=== PATIENT | male | born 1960 | race Caucasian/White ===

== ENCOUNTER → 2016-09-24 | Outpatient (CLI) | payer BC ==
[~2016-09-24] MED LIST: BAYER ASPIRIN325 M1 PO; LOTREL 5/20 MG1 CAP PO; REQUIP1 MG PO
--- NOTE | ~2016-09-24 | MR2 ---
[facility] A Service of [facility] RADIOLOGY TEXT RESULTS PATIENT: JEAN JUAREZ [facility] 60 UNIT #: [id number] AGE: [address]: Matt Sam MD SEX: M ORDER DR: [id number] [facility] [address] [facility] [place], [place] [address] [id number] MR#: [id number] Acc #: [id number] NAME: JEAN JUAREZ. : 1960 SEX: M STUDY DATE/TIME: 09/24/2016 22:27 UNIT: [facility] ROOM: STUDY DESCRIPTION: MR Abdomen WWo Cont Attending Physician: Matt Sam M.D. Referring Physician: Matt Sam M.D. Ordering Physician: Matt Sam M.D. Primary Care Physician: Matt Sam M.D. MRI CENTER REPORT This report is preliminary unless electronic signature is present. EXAM MRI abdomen, without and with IV gadolinium HISTORY Right hepatic mass on CT without contrast 09/13/2016. Fatty liver. Bilateral abdomen pain for 1 month. FINDINGS MRI abdomen was performed without and with IV gadolinium. The exam is compared to CT abdomen 09/13/2016 There is diffuse fatty infiltration of the liver. There is a lobulated mass in the inferomedial right hepatic lobe in segment 6, partly exophytic, measuring 5.6 cm x 6.6 cm in AP and transverse dimensions, corresponding to the mass on CT 09/13/2016. The lesion is hypointense on T1 and hyperintense on T2. On the post-gadolinium series, there is peripheral nodular immediate enhancement, with gradual increasing enhancement up to the delayed images, at 10 minutes. Imaging features are characteristic of hemangioma. No additional hepatic mass. No biliary dilatation. The gallbladder is normal. The spleen, left kidney, and adrenal glands are normal. There is a cyst in the left lateral margin of the pancreatic tail measuring 1.4 cm x 1.9 cm in AP and transverse dimensions. This appears to contain a thin internal septation. No nodularity or enhancing components. There is a second slightly lobulated cyst along the posterior margin of the pancreatic head measuring 0.8 cm x 1.5 cm. While these could be incidental simple pancreatic cysts, a followup MRI abdomen in 1 year is recommended to ensure stability. No pancreatic ductal dilatation. No ascites. Incidental tiny subcentimeter cysts in the [id number] right kidney. The visualized abdominal aortic caliber is normal. IMPRESSION 1. Hemangioma in the inferomedial right hepatic lobe measures 5.6 cm x STS. [facility] A Service of [facility] RADIOLOGY TEXT RESULTS PATIENT: JEAN JUAREZ [facility] 60 UNIT #: [id number] AGE: [address]: Matt Sam MD SEX: M ORDER DR: 6.6 cm and corresponds to the lesion noted on CT abdomen 09/13/2016. 2. Diffuse fatty infiltration of the liver. 3. Two pancreatic cysts. The larger cyst measures 1.4 cm x 1.9 cm in the left lateral margin of pancreatic tail and contains a thin septation. The smaller pancreatic cyst measures 0.8 cm x 1.5 cm along the posterior margin of the pancreatic head and is slightly lobulated. These could be incidental simple pancreatic cysts, but followup MRI abdomen should be considered in 1 year to ensure stability. Dictated by... Omar Hussein M.D. THIS IS AN ELECTRONICALLY VERIFIED REPORT Omar Hussein M.D. at 09/26/2016 1:53 PM BILLIE/thai TD: 09/26/2016 05:57 JOB #: [id number] MRI CENTER REPORT COPY
[2016-09-28 09:46] LABS: POC - CREATININE 1.23 mg/dL (0.64-1.27)
== END | disposition home or self-care (01) ==
LOC: CMRI 18:38
PROVIDERS: Family Medicine
DX: R10.9 Unspecified abdominal pain (principal); D18.03 Hemangioma of intra-abdominal structures; K76.0 Fatty (change of) liver, not elsewhere classified; K86.2 Cyst of pancreas
CPT/HCPCS: 74183; 82565; A9577